=== PATIENT | female | born 1940 | race Caucasian/White ===

== ENCOUNTER → 2018-04-29 | Outpatient (CLI) | payer OTHER ==
[~2018-04-29] MED LIST: ADDERALL7.5 MG PO; AGRYLIN0.5 MG PO; ALBUTEROL0.83 MG/ML IH; ALDACTONE 25MG25 M1 PO; ALDOMET 250MG250 MG PO; ALLEGRA 180MG180 MG PO; ALLEGRA 60MG TA60 MG PO; ALLEGRA ODT30 MG PO; AMBIEN5 MG PO; AMOXAPINE100 MG PO; AMOXICILLI400 MG/51 PO; AMOXICILLIN 25250 MG PO; AMOXICILLIN 50500 MG PO; AMOXICILLIN 8751 TAB PO; AMOXICILLIN/CL100 ML PO; AMOXICILLIN/CLA1 TA1 PO; AMOXICILLIN125 MG PO; AMOXICILLIN875 MG PO; ANTIBIOTIC; ANTIOBIOTIC; APIDRAVL SC; APIDRAVL SQ; APRESOLINE 25MG25 MG PO; APRESOLINE50 MG PO; ASENDIN25 MG PO; ASPIRIN 32325 MG/TAB PO; ASPIRIN 81M81 MG/TA2 PO; ATACAND32 MG PO; ATIVAN 0.50.5 MG/TAB PO; ATIVAN 1MG T1 MG/TAB PO; AZILECT1 MG PO; AZITHROMYCIN; Antibiotic; B-1100 MG PO; BACTRIM DS 8001 TAB PO; BETAPACE AF80 MG/TA1 PO; BIAXIN 500MG T500 MG PO; BUFFERED ASPIR325 M2 PO; BUSPAR DIVIDOSE15 MG PO; CATAPRES 0.1MG0.1 MG PO; CEFTIN500 MG PO; CELEXA 20MG20 MG/TAB PO; CELLCEPT 250MG250 MG PO; CEPHALEXIN500 M1 PO; CHLOROQUINE PO; CIPRO500 MG PO; CLARITIN 1010 MG/TAB PO; CO Q-1010 M1 PO; COMBIVENT INH14.7 GM IH; COMPAZINE 110 MG/TAB PO; COREG 3.123.125 MG/T PO; COREG 6.256.25 MG/TA PO; CORLANOR7.5 MG PO; COUMADIN 1MG1 MG/TAB PO; COUMADIN 22.5 MG/TAB PO; COUMADIN 2MG2 MG/TAB PO; COUMADIN 5MG5 MG/TAB PO; CRESTOR 10MG10 MG PO; DEMADEX5 MG PO; DIOVAN 80MG80 MG PO; DOXYCYCLINE 10100 MG PO; DOXYCYCLINE100 M2 PO; ENTRESTO 24 MG1 EACH PO; GENTAMICIN EYE D5 ML OS; GENTAMICIN EYE D5 ML OU; GENTAMICIN OPTHA3 GM OD; GLUCOPHAGE500 MG/TAB PO; GLUCOPHAGE850 MG/TAB PO; HCTZ 25MG TAB25 MG PO; HYZAAR 50-12.1 UDTAB PO; IBU-8800 MG PO; IPRATROPIUM BROM3 M1 IH; LANOXIN0.125 MG PO; LASIX 20MG TABL20 MG PO; LASIX 40MG TABL40 MG PO; LASIX 80MG TABL80 MG PO; LEVAQUIN 250MG250 MG PO; LEVAQUIN 5500 MG/TA1 PO; LEVAQUIN 750MG750 M1 PO; LEVO-DROMORAN2 MG; LEVO-DROMORAN2 MG PO; LEVOXYL0.075 MG PO; LEVOXYL0.1 MG PO; LIBRIUM 5MG5 MG/CAP PO; LIORESAL 1010 MG/TAB PO; LIPITOR; LIPITOR 10MG10 MG PO; LIPITOR 40MG TA40 MG PO; LIPITOR20 MG PO; LOESTRIN 21 1.51 TAB PO; LOPRESSOR 225 MG/TAB PO; LORTAB 5/500 501 TAB PO; Lovenox SQ; MACRODANTIN50 MG/CA1 PO; MAGIC MOUTH PO; MAGIC MOUTHWASH1 M1 PO; MEDROL 4MG DOSPA4 MG PO; METHOTREXA2.5 MG/TAB PO; MOTRIN 800800 MG/TAB PO; MOTRIN800 MG PO; MUCINEX 60600 MG/TA1 PO; MUCUSRELF400T PO; MULTAQ400 MG PO; NAPROSYN500 MG PO; NAPROXEN EC500 MG PO; NARDIL PO; NIACIN 250250 MG/CAP PO; NIACIN PO; NIZORAL PO; NORCO 325 MG-101 TAB PO; NORCO 325 MG-51 TAB PO; NORCO 325 MG-7.1 TAB PO; NORMODYNE200 MG PO; NORPRAMIN PO; NORVASC 5MG5 MG/TAB PO; NOVOLIN N100 U/ML SC; NYSTATIN CREAM15 GM TP; OCUVITE1 TA1 PO; OMEGA-3 FISH1200 MG PO; OMNICEF 300MG300 MG PO; OXY IR5 MG PO; PACERONE400 MG PO; PARNATE10 MG PO; PEPCID 20MG TAB20 MG PO; PERCOCET 325 MG1 TA2 PO; PERCOCET 325 MG1 TA3 PO; PHENERGAN 25 TA25 MG PO; PLETAL50 MG PO; PREDNISONE20 MG PO; PRILOSEC 20MG20 MG PO; PRINIVIL2.5 MG PO; PROAIR HFA0.09 MG/AC IH; PROTONIX 40MG T40 MG PO; PROZAC 20MG20 MG PO; PROZAC40 MG PO; REGLAN 10MG10 MG/TAB PO; RISPERDAL2 MG PO; ROXICODONE 55 MG/TAB PO; RT SPIRIVA18 MCG IH; SAVELLA12.5 MG PO; SEPTRA DS 800 M1 TAB PO; SYNTHROID0.1 MG/TAB PO; TAGAMET200 MG PO; TEGRETOL 1100 MG/TAB PO; TEGRETOL 2200 MG/TA1 PO; TOPROL XL 25MG25 MG PO; TYLENOL 325MG325 MG PO; TYLENOL JUNIOR PO; ULTRAM 50MG TAB50 MG PO; ULTRAM ER100 MG PO; UNABLE; VFEND 200MG200 MG; VITAMIN C BUFF500 MG PO; VITAMIN C1 TAB PO; VITAMIN C500 MG PO; VITAMIN COMPLEX1 TA1 PO; VITAMIN D32000 I1 PO; VITAMIN E-400200 IU PO; VITAMIN E200 I1 PO; VOLTAREN 50MG T50 MG PO; ZESTRIL 10MG10 MG PO; ZITHROMAX 250M250 MG PO; ZITHROMAX TRI-500 MG PO; ZITHROMAX500 M2 PO; ZOCOR 40MG40 MG; ZOCOR 40MG40 MG PO; ZOCOR5 MG PO; ZOFRAN 4MG T4 MG/TAB PO; ZOFRAN ODT8 MG PO; ZYRTEC 10MG10 MG PO; [UNRECOGNIZED DRUG - OTHER]; [UNRECOGNIZED DRUG - OTHER] PO; [UNRECOGNIZED DRUG - OTHER] PO; [UNRECOGNIZED DRUG - OTHER] PO; [UNRECOGNIZED DRUG - OTHER] PO; [UNRECOGNIZED DRUG - OTHER] PO; [UNRECOGNIZED DRUG - OTHER] PO
== END ==
LOC: COL.RAD 10:00
DX: Z01.89 Encounter for other specified special examinations (principal)